=== PATIENT | female | born 1965 | race Caucasian/White ===

== ENCOUNTER 2018-05-02 12:43 | Day surgery (SDC) | payer OTHER, SELFPAY ==
--- NOTE | 2018-05-02 | PATH_ITS ---
[facility] Accession Number: [id number] . 01 Material submitted: . ASCENDING COLON BIOPSY . 02 Diagnosis: Ascending Colon, Biopsy: Benign mucosal Schwann cell hamartoma. Negative for atypia, epithelial dysplasia and malignancy. Additional levels were examined. MRV/05/04/2018 . 02 Electronically signed: . Perla Galdamez MD, Pathologist NPI- [id number] . 01 Gross description: . Received one formalin-filled container labeled with the patient's name and labeled ascending colon. The specimen consists of a 0.2 cm portion of tissue, entirely submitted in one cassette. ([id number]) /FRR . 02 Pathologist provided ICD-10: K63.5 . 02 CPT . 915065 Performed at: 01 [facility] [address] [id number] MD Raymond Soto MD Phone: [phone] Performed at: 02 [facility] [address] [place], [place] [id number] MD Rick Griffiths MD Phone: [phone]
--- NOTE | 2018-05-02 12:56 | PM.HP.1 ---
History of Present Illness Date Patient Seen: 05/02/18 Chief complaint: [id number] SCREENING COLONOSCIPY W/POSS BX Narrative: 52-year-old female here for colon polyp surveillance. The patient has a history of prior colon adenomas in the past however her previous colonoscopy report and pathology is not available to me. Her last colonoscopy was done around 3 years ago and she was told she needed to return in 3 years for surveillance. Meds Allergies Allergy/AdvReac Type Severity Reaction Status Date / Time No Known Drug Allergies Allergy Verified 05/02/18 13:04 Review of Systems Review of Systems All systems reviewed & are unremarkable except as noted in HPI and below Exam Narrative Exam Narrative: General: Patient is well developed, not in apparent distress Cardiovascular: Regular rate and rhythm, no murmurs, rubs, or gallops; no evidence of edema; no palpable abdominal aortic aneurysm Gastrointestinal: Normoactive bowel sounds, soft, nontender, nondistended, no rebound tenderness, no hepatosplenomegaly, no evidence of hernia Assessment & Plan Plan: Assessment/Plan Narrative: 52-year-old female here for colon polyp surveillance. She has no evidence of active GI issues at present. Regarding the procedure(s), the risks and potential complications, benefits, and alternatives (including not doing the procedure) were discussed with the patient. The risks include but are not limited to bleeding, infection, perforation which may require surgical intervention, missed lesions, and adverse reactions to sedative medicines. After a question and answer period, the patient agreed to proceed with the procedure(s) and gives informed consent.
[2018-05-02] MEDS: SODIUM CHLORIDE 0.9% 1,000 ML 70 ML IV (13:00)
[2018-05-02 13:05] VITALS: BP 110/69; PULSE 69; RESP 20; TEMP 36.6; O2SAT 100
--- NOTE | 2018-05-02 13:35 | PM.OP.ENDO ---
Operative Date/Time/Diagnoses Date of procedure: 05/02/18 Procedure Notes Procedure in detail: Surgeon: Aleksey Chan MD Procedure: Colonoscopy with polypectomy Preoperative diagnosis: Colon polyp surveillance Postoperative diagnosis: Colon polyp status post polypectomy, grade 1 internal hemorrhoids Medications: Conscious sedation using 7 mg IV of Midazolam and 150 mcg IV of Fentanyl Preanesthesia Assessment An H and P was performed/updated and the Px?s ASA class is 1. The procedure was discussed in detail with the patient. The potential risks and complications including infection, bleeding, missed lesions, perforation, need for surgery in case of perforation, prolonged hospital stay, and were explained. A brief question and answer period was allotted and once all questions were answered, informed consent was obtained. The patient was brought back to the procedure room and placed on standard monitoring. The patient?s vital signs were monitored continuously throughout the entire procedure. Prior to starting, a timeout was performed to confirm the patient?s identity, allergies, medications, and procedure. Procedure in detail The patient was placed in left lateral decubitus position and once adequate sedation was obtained a MARIO was performed. The digital rectal examination was unrevealing with no palpable lesions. The tip of the colonoscope was placed in the anal canal and advanced with some difficulty to the cecum. This was due to extensive looping in the sigmoid colon which was rectified with scope shortening and increasing sedation. The cecum was identified by the appendiceal orifice and ileocecal valve. Careful examination of all longo of the colon was performed with irrigation of any residual stool. In the ascending colon there is note of a 2 mm sessile polyp which was removed in its entirety by means of a cold Jumbo forceps with minimal bleeding. Examination of the remainder of the colon revealed no further mucosal abnormalities. Retroflexion was performed in the rectum which revealed grade 1 internal hemorrhoids. The patient tolerated the procedure well and will be brought back to the recovery area to be discharged once criteria are met. The prep was judged to be good/excellent and adequate to identify polyps less than 5 mm. The withdrawal time was 8 min. The total procedure time from initial sedation was 20 min. Complications There were no complications and estimated blood loss was minimal. Recommendations: Resume previous diet Follow up pathology results Repeat colonoscopy in 5 years for polyp surveillance An emergency contact number was given to the patient for any complications related to the procedure
[2018-05-02] MEDS: fentaNYL 250 MCG/5 ML INJ IV (14:00)
[2018-05-02 14:01] VITALS: BP 91/58; PULSE 65; RESP 12; TEMP 36.6; O2SAT 99
[2018-05-02] MEDS: MIDAZOLAM 5 MG/5 ML VIAL IV (14:01)
--- NOTE | 2018-05-02 14:03 | PM.DS.1 ---
History of Present Illness Chief complaint: [id number] SCREENING COLONOSCIPY W/POSS BX Narrative: 52-year-old female here for colon polyp surveillance. The patient has a history of prior colon adenomas in the past however her previous colonoscopy report and pathology is not available to me. Her last colonoscopy was done around 3 years ago and she was told she needed to return in 3 years for surveillance. Discharge Providers Primary care physician: Clementine Rodriguez MD Discharge provider: Aleksey Cahn MD Exam Vital Signs (past 8 hours): - 05/02/18 13:05 Temperature 97.8 F Pulse Rate 69 Respiratory Rate 20 Blood Pressure 110/69 Pulse Oximetry 100 Oxygen Delivery Method Room Air Narrative Exam Narrative: General: Patient is well developed, not in apparent distress Cardiovascular: Regular rate and rhythm, no murmurs, rubs, or gallops; no evidence of edema; no palpable abdominal aortic aneurysm Gastrointestinal: Normoactive bowel sounds, soft, nontender, nondistended, no rebound tenderness, no hepatosplenomegaly, no evidence of hernia Discharge Plan Discharge Plan Patient Disposition: Home, Self-Care Discharge Med Rec/Prescriptions Discharge Orders: Discharge (Order); Ordered 05/02/18 Ordered By: Aleksey Chan Provider Discharge Instructions Diet: Diet as Tolerated Visit Report/Discharge Packet Stand Alone Forms: Surgery Discharge Discharge Data Primary Care Provider: Clementine Rodriguez Attending Provider: Aleksey Chan
[2018-05-02 14:06] VITALS: BP 92/61; PULSE 63; RESP 16; O2SAT 99
[2018-05-02 14:11] VITALS: BP 93/61; PULSE 60; RESP 16; O2SAT 98
[2018-05-02 14:22] VITALS: BP 93/66; PULSE 61; RESP 15; TEMP 36.3; O2SAT 100
== END 2018-05-02 14:49 | disposition home or self-care (01) ==
PROVIDERS: PCP Family Medicine; Visit Provider Internal Medicine Gastroenterology
PROC: 0DJD8ZZ Inspection of Lower Intestinal Tract, Via Natural or Artificial Opening Endoscopic (ICD-10-PCS; CPT 45378; principal; 2018-05-02 13:30)
DX: Z86.010 Personal history of colon polyps (principal); K64.0 First degree hemorrhoids; D12.2 Benign neoplasm of ascending colon
CPT/HCPCS: 45380; J2250; J3010